=== PATIENT | male | born 1995 | race Caucasian/White ===

== ENCOUNTER 2021-02-28 11:26 | Emergency (ER) | payer OTHER, SELFPAY ==
--- NOTE | 2021-02-28 11:29 | XR_ITS ---
PROCEDURE: XR RIBS BI MIN 4V W CXR1V CLINICAL INDICATION: PAIN Bilateral rib pain COMPARISON: CR CXR CHEST(2 VIEWS-NOT PORTABLE) from 11/03/2013 CR CXR CHEST(2 VIEWS-NOT PORTABLE) from 03/30/2016 FINDINGS: Frontal view of the chest shows no acute finding. Multiple views of right and left ribs show no lytic or blastic change. No fracture or dislocation. No evidence of pneumothorax or pleural effusion. IMPRESSION: Negative bilateral ribs. Dictated by: Phuc Kelly MD 02/28/2021 11:59 Phuc Kelly MD in [place] 02/28/2021 11:59
--- NOTE | 2021-02-28 11:29 | XR_ITS ---
PROCEDURE: XR KNEE RT 3V CLINICAL INDICATION: PAIN COMPARISON: No exams were available for comparison FINDINGS: No fracture or dislocation. No lytic or blastic change. There is normal mineralization. The joint spaces are well-preserved. No significant degenerative/arthritic changes. No erosive changes evident. Other findings:There is some increased density in the suprapatellar region suggesting small knee joint effusion IMPRESSION: Possible small knee joint effusion negative. Dictated by: Phuc Kelly MD 02/28/2021 12:00 Phuc Kelly MD in [place] 02/28/2021 12:00
[2021-02-28 11:39] VITALS: BP 138/78; PULSE 86; RESP 19; TEMP 36.6; O2SAT 100; BMI 23.0
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
[2021-02-28 12:23] VITALS: BP 129/82; PULSE 85; RESP 18; TEMP 36.6
== END 2021-02-28 12:34 | disposition home or self-care (01) ==
PROVIDERS: Emergency Provider Nurse Practitioner; PCP Family Medicine
DX: S83.8X1A Sprain of other specified parts of right knee, initial encounter (principal); S20.213A Contusion of bilateral front wall of thorax, initial encounter; V00.141A Fall from scooter (nonmotorized), initial encounter; Y92.414 Local residential or business street as the place of occurrence of the external cause
CPT/HCPCS: 29505; 71111; 73562; 99202; G0463

== ENCOUNTER → 2021-03-14 13:08 | Outpatient (CLI) | payer OTHER, SELFPAY ==
--- NOTE | 2021-03-14 13:16 | MR_ITS ---
PROCEDURE INFORMATION: Exam: MR Right Lower Extremity Joint Without Contrast, Knee Exam date and time: 03/14/2021 1:16 PM Age: 26 years old Clinical indication: Pain; Knee; Right; Additional info: Strain of right knee. Hyperextended knee x1.5wks ago. Pain when bending and extending knee. Knee instability. Prior x-ray 02-28-21 TECHNIQUE: Imaging protocol: MR of the Right lower extremity joint without contrast. Exam focused on the knee. COMPARISON: CR XR KNEE RT 3V 02/28/2021 11:38 AM FINDINGS: Bones/joints: No acute fracture. No dislocation. Fluid: Small joint effusion. No significant Ozuna's cyst. Medial meniscus: No definite tear. Lateral meniscus: No definite tear. Anterior cruciate ligament: Laxity/discontinuity of fibers. Posterior cruciate ligament: Intact. Medial capsule and supporting structures: Intact. Lateral capsule and supporting structures: Intact. Extensor mechanism of knee: Intact. Muscles: Unremarkable. Soft tissues: Minimal stranding within soft tissues. IMPRESSION: Anterior cruciate ligament tear, likely subacute.
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
== END ==
PROVIDERS: PCP Family Medicine; Visit Provider Family Medicine
DX: S86.911A Strain of unspecified muscle(s) and tendon(s) at lower leg level, right leg, initial encounter (principal); M25.461 Effusion, right knee; H05.53 Retained (old) foreign body following penetrating wound of bilateral orbits
CPT/HCPCS: 70200; 73721

== ENCOUNTER 2021-04-07 09:00 | Outpatient (RCR) | payer OTHER, SELFPAY ==
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
== END 2021-04-07 09:05 | disposition home or self-care (01) ==
LOC: PT 09:00
PROVIDERS: PCP Family Medicine; Visit Provider Orthopaedic Surgery
DX: S83.31XA Tear of articular cartilage of right knee, current, initial encounter (principal)
CPT/HCPCS: 97010; 97014; 97016; 97110; 97163; G0283

== ENCOUNTER → 2021-05-09 10:06 | Outpatient (CLI) | payer OTHER, SELFPAY ==
[2021-05-09 10:21] LABS: Basophils % 0.4 % (0.1-2.0); Eosinophils # 0.2 K/mm3 (0.0-0.4); Eosinophils % 2.1 % (0.1-12.0); Hemoglobin 15.7 g/dL (14.1-18.0); Lymphocytes # 2.7 K/mm3 (0.7-4.5); Lymphocytes % 25.8 % (10-50); Mean Corpuscular HGB Conc 36.6 g/dL (31.8-35.4); Mean Corpuscular Hemoglobin 32.5 pg (27.0-31.2); Mean Corpuscular Volume 88.7 fl (80-94); Mean Platelet Volume 8.1 fl (7.4-10.4); Monocytes # 0.6 K/mm3 (0.1-1.0); Monocytes % 5.3 % (1.7-9.3); Neutrophils % 66.4 % (37.0-80.0); Platelet Count 264 K/mm3 (142-424); Red Blood Count 4.84 M/mm3 (4.60-6.20); Red Cell Distribution Width 17.6 % (11.5-17.5); White Blood Count 10.5 K/mm3 (4.8-10.8)
[2021-05-09 11:32] LABS: Chloride 106 mmol/L (98-107); Sodium 139 mmol/L (136-145)
[2021-05-09 11:33] LABS: Potassium 4.2 mmoL/L (3.5-5.1)
[2021-05-09 11:35] LABS: Alanine Aminotransferase 18 U/L (12-78); Albumin Level 4.5 g/dl (3.5-5.0); Alkaline Phosphatase 70 U/L (38-126); Anion Gap 11.2 mEq/L (5-15); Aspartate Amino Transferase 24 U/L (17-59); Bilirubin,Total 1.7 mg/dl (0.2-1.3); Blood Urea Nitrogen 11 mg/dl (9-20); Carbon Dioxide 26 mmol/L (22.0-30.0); Estimated Glomerular Filt Rate 92 ml/min (>60); GFR (African American) 111 ML/MIN (>60); Globulin 2.3 g/dL (1.3-3.2); Total Protein,Serum 6.8 g/dl (6.3-8.2)
[2021-05-09 11:36] LABS: Calcium 9.1 mg/dl (8.4-10.2); Glucose 84 mg/dl (74-100)
== END ==
PROVIDERS: Visit Provider Orthopaedic Surgery
DX: Z01.818 Encounter for other preprocedural examination (principal); Z11.52 Encounter for screening for COVID-19; S89.91XD Unspecified injury of right lower leg, subsequent encounter; S83.511D Sprain of anterior cruciate ligament of right knee, subsequent encounter
CPT/HCPCS: 36415; 80053; 85025; U0003

== ENCOUNTER 2021-05-10 07:34 | Day surgery (SDC) | payer OTHER, SELFPAY ==
[2021-05-06 08:58] VITALS: BMI 24.4
[2021-05-10] VITALS (11 sets, daily range): BP systolic 120–139; BP diastolic 58–89; PULSE 64–86; RESP 12–18; TEMP 36.1–43; O2SAT 97–99
--- NOTE | 2021-05-10 08:10 | P.PN_ITS ---
[facility] Anesthesia Checklist - Patient Identification Patient Identification: Arm Band - Structural Data Admitted From: Home Planned Operative Procedure/s: Right Knee ACL Reconstruction with Bone Tendon Autograft Consent for Planned Operative Procedure(s) Verified: Yes Verified Documents: Surgical Consent, History and Physical - NPO Status Verified Time NPO: 00:00 - Additional verifications Anesthesia Reactions: No Hx Blood Transfusions: No Blood Transfusion Reaction: No - Airway Assessment C-Spine Mobility Assessed: Yes (mp2) TMJ Mobility Assessed: Yes Dentition: Good Dentition - Neurological Assessment Level of Consciousness: Awake, Alert - Anesthesia Plan Anesthesia Risk discussed: Yes Anesthesia Plan: Verified ASA Class: I Anesthesia Type: General w/block [facility] History I have reviewed the patient's past medical history: Yes Medical History: Denies:: Cancer, Diabetes Mellitus Type 1, Diabetes Mellitus Type 2, Internal Pacemaker, MRSA, Seizures *Have you ever received a pneumonia vaccine?: No *Have you received a flu vaccine this season?: No Other Medical History: Denies: Blood Transfusion Reaction Anesthesia experience/problems:: nac Other Surgeries: Yes: No Previous Surgery. No: Pacemaker Amputation: No Fractures: No - *Social History Last grade of school completed: High school graduate Smoking Status: Current every day smoker Alcohol Intake: never Alcohol Intake Frequency:: holidays/special occasions only Substance Use Type: denies use *Occupational Status:: employed *Travel in the last 8 weeks: None Family Hx:: No significant family history
--- NOTE | 2021-05-10 12:35 | P.PN_ITS ---
[facility] Anesthesia Record Part I Intake, IV Amount: 1,800 Estimated blood loss (mL): 0 Urine output (mL): 200 Blood Pressure: 120/78 SaO2: 97 Pulse Rate: 84 Respiratory Rate: 12 Temperature: 97.8 F Patient is:: Awake, Stable Stable to PACU at:: 12:30
[2021-05-10 13:36] LABS: Microscopic,Cath URINE MICROSCOPIC (MICROSCOPIC)
[2021-05-10 13:47] LABS: Appearance,Urine/Cath CLEAR (Clear); Bilirubin,Cath Negative (Negative); Blood, Urine/Cath Negative (Negative); Color,Urine/Cath YELLOW (Yellow); Glucose,Urine/Cath (UA) Negative (Negative); Ketones,Urine/Cath Negative (Negative); Leukocyte Esterase,Cath Negative (Negative); Nitrate,Cath Negative (Negative); Protein,Urine/Cath Negative (Negative); Specific Gravity, Urine/Cath <= 1.005 (1.005-1.030); Urobilinogen,Cath 0.2 EU/dl (0.2)
[2021-05-10 14:53] LABS: WBC,Urine/Cath Occasional #/hpf (0-3)
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
--- NOTE | 2021-05-12 07:30 | P.PN_ITS ---
[facility] Anesthesia Record Part II Discharge Time: 13:00 Destination: Surgical Day Care (OP Surgery) PACU nurse assessment reviewed?: Yes Patient Condition:: Good Anesthesia Complications:: None Swallowing reflex intact?: Yes Cyanosis?: No Blood Pressure: 135/89 Pulse Rate: 85 Temperature: 97.8 F Mental Status: Alert & Oriented Pain level:: 0 Nausea and/or vomitting:: None Intake, IV Amount: 0
[2021-05-12 07:31] VITALS: BP 135/89; PULSE 85; TEMP 36.6
== END 2021-05-10 13:49 | disposition home or self-care (01) ==
PROVIDERS: PCP Family Medicine; Visit Provider Orthopaedic Surgery
PROC: (CPT 29888; principal; 2021-05-10 09:00)
DX: S83.511A Sprain of anterior cruciate ligament of right knee, initial encounter (principal); V03.0 Pedestrian injured in collision with car, pick-up truck or van in nontraffic accident; F17.210 Nicotine dependence, cigarettes, uncomplicated
CPT/HCPCS: 29888; 81001; 96374; C1713; J2405

== ENCOUNTER → 2021-07-05 13:44 | Outpatient (CLI) | payer OTHER, SELFPAY ==
--- NOTE | 2021-07-05 13:46 | XR_ITS ---
PROCEDURE: XR KNEE RT 4V CLINICAL INDICATION: sp RT knee ACL, sx 05/10/21 COMPARISON: CR XR KNEE RT 3V from 02/28/2021 FINDINGS: No fracture or dislocation. No lytic or blastic change. There is normal mineralization. The joint spaces are well-preserved. No significant degenerative/arthritic changes. No erosive changes evident. Other findings:None. IMPRESSION: No acute findings. Dictated by: Phuc Kelly MD 07/05/2021 14:28 Phuc Kelly MD in [place] 07/05/2021 14:28
== END ==
PROVIDERS: PCP Family Medicine; Visit Provider Orthopaedic Surgery
DX: Z09 Encounter for follow-up examination after completed treatment for conditions other than malignant neoplasm (principal); Z98.890 Other specified postprocedural states
CPT/HCPCS: 73564

== ENCOUNTER 2021-07-06 14:00 | Outpatient (RCR) | payer OTHER, SELFPAY ==
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
--- NOTE | 2021-06-15 15:20 | HMH.RHREAS ---
Rehab Reassessment Rehab OP Re-assessment Start: 06/15/21 13:47 Freq: Status: Active Protocol: Document 06/15/21 13:47 MELANIE (Rec: 06/15/21 15:20 MELANIE [id number]) Electronically Signed By Mookie Diana, PT 06/15/21 13:47 Rehab Re-assessment Subjective Subjective Pt reports 0-4/10 right knee pain on VAS w/activity, and feels 65% better overall since I eval Objective Objective Notes AROM: RIGHT KNEE FLX 4-121 PROM: RIGHT KNEE FLX 0-130 MMT: RIGHT KNEE EXT 4/5, FLX 4 /5, RIGHT HIP FLX 4--4/5, EXT 4-4+/5, ABD,ADD 4/5 GAIT: 2-5 DEGREES EXT LAG WITH STANCE PHASE ON RIGHT TTP:RIGHT KNEE SX. INCISIONS/ SCAR TISSUE 1-10/28, LATERAL JT LINE 2/4 Assessment Progress Assessment Progressing as Expected Assessment Notes IMPROVED STRENGTH, ROM, TTP, AND GAIT Patient goals met STG'S 03/02 Goals Not Met STG'S 11/30, LTG'S 06/02 Plan Plan Pt to continue w/skilled P.T. to make further improvements in AROM, strength, TTP, and gait to allow for optimal function Frequency of Therapy 2-3x/wk Duration of therapy 8-10 wks Time and Billing Re-Eval Time 15 Re-Eval Billing Units 1 PHYSICIAN CERTIFICATION: I certify the specified therapy services for Herson Medina are required, authorized, and reviewed every 30 days.
== END 2021-07-06 14:05 | disposition home or self-care (01) ==
LOC: PT 14:00
PROVIDERS: PCP Family Medicine; Visit Provider Orthopaedic Surgery
DX: M25.561 Pain in right knee (principal); S83.31XA Tear of articular cartilage of right knee, current, initial encounter
CPT/HCPCS: 97010; 97014; 97016; 97110; 97140; 97163; 97164; G0283

== ENCOUNTER 2023-03-07 18:29 | Emergency (ER) | payer SELFPAY ==
[2023-03-07 18:30] VITALS: BP 127/69; PULSE 89; RESP 16; TEMP 36.5; O2SAT 98; BMI 25.4
--- NOTE | 2023-03-07 20:26 | XR_ITS ---
PROCEDURE INFORMATION: Exam: XR Right Knee Exam date and time: 03/07/2023 8:21 PM Age: 28 years old Clinical indication: Pain; Knee; Right TECHNIQUE: Imaging protocol: Radiologic exam of the right knee. Views: 3 views. COMPARISON: CR XR KNEE RT 4V 09/02/2021 14:06 FINDINGS: Bones/joints: No acute fracture or dislocation. Soft tissues: Normal. IMPRESSION: No acute fracture or dislocation.
--- NOTE | 2023-03-07 20:26 | XR_ITS ---
PROCEDURE INFORMATION: Exam: XR Left Knee Exam date and time: 03/07/2023 8:22 PM Age: 28 years old Clinical indication: Pain; Knee; Left TECHNIQUE: Imaging protocol: Radiologic exam of the left knee. Views: 3 views. COMPARISON: No relevant prior studies available. FINDINGS: Bones/joints: No acute fracture or dislocation. Soft tissues: Normal. IMPRESSION: No acute fracture or dislocation.
--- NOTE | 2023-03-07 20:36 | HMH.EDGENADL ---
Discharge Plan Disposition Patient Disposition: Home, Self-Care Prescriptions Prescriptions: New sulfamethoxazole-trimethoprim [Bactrim DS] 800-160 mg Tablet 1 tab PO Q12H Qty: 20 0RF cephalexin [cephalexin] 500 mg capsule 500 mg PO TID Qty: 30 0RF Referrals Follow up/Referrals: Isaac Saravia MD [Primary Care Provider] - See instructions Clinical Impressions Clinical Impression: Cellulitis Instructions Patient Instructions: Cellulitis Discharge ED Provider: Rad (ED)[facility] General Adult HPI General Chief complaint: PAIN Stated complaint: sore on each leg,painful Time Seen by Provider: 03/07/23 20:39 Mode of Arrival: Ambulatory Source of Information: Patient and Medical Record Limitations: No Limitations Description of Symptoms (Recalled from ER Triage Doc. by RN): PT REPORTS INCREASED BILATERAL KNEE PAIN THAT RADIATES DOWN BILATERAL LEGS WITH REDNESS AND SWELLING. 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 History of Present Illness HPI narrative: pt has reddness and pain to upper tibial area - no trauma but has been laying deacon Onset (ago): day(s) Location: lower extremity Severity: moderate Consistency: intermittent Associated symptoms: denies other symptoms Related Data Previous Rx's Medication Instructions Recorded cephalexin 500 mg capsule 500 mg PO TID #30 caps 03/07/23 sulfamethoxazole 800 1 tab PO Q12H #20 tabs 03/07/23 mg-trimethoprim 160 mg tablet (Bactrim DS) Allergies Allergy/AdvReac Type Severity Reaction Status Date / Time HONEY BEE Allergy Mild Uncoded 07/05/21 14:31 [facility] Disclaimer: The information contained in this section may have been updated after the patient was seen, as this information can be updated by other users. Surgical History (Updated 03/07/23 @ 18:48 by Denisse Waggoner RN) S/P ACL repair Family History (Updated 03/07/23 @ 18:48 by Denisse Waggoner RN) Other No significant family history Social History (Updated 03/07/23 @ 18:48 by Denisse Waggoner RN) Smoking Status: Never smoker alcohol intake: current substance use type: denies use current occupational status: employed Travel in the last 8 weeks: None caffeine: No ROS Obtained: Yes All systems reviewed & no additional complaints except as documented Physical Exam General General appearance: alert Head Head exam: normocephalic Eye Eye exam: Present PERRL and EOMI ENT ENT exam: Present mucous membranes moist Neck Neck exam: Present trachea midline Respiratory Respiratory exam: Absent respiratory distress Cardiovascular Cardiovascular exam: Present regular rate Extremities Exam Extremities exam: Present other (has bilat upper leg reddness and tenderness consistent with cellulitis - no abscess - nl rom of knees and no effusion) Neurological Exam Neurological exam: Present alert, oriented X3 and CN II-XII intact; Absent motor sensory deficit Psychiatric Psychiatric exam: Present normal affect Skin Skin exam: Present rash (bilat cellulitis upper lower ext ) Medical Decision Making Medical Records Medical records reviewed: Yes I reviewed the patient's medical records. [place] Inquiry Pt receiving controlled substance: No Vital Signs: 03/07/23 18:30 Temperature 97.7 F Temperature Source Oral Pulse Rate [Radial] 89 Respiratory Rate 16 Blood Pressure [Left Arm] 127/69 Blood Pressure Mean [Left Arm] 88 Blood Pressure Source [Left Arm] Automatic Cuff Blood Pressure Position [Left Arm] Sitting 02 Sat by Pulse Oximetry 98 Oxygen Delivery Method Room Air Lab Data Lab results reviewed: Yes I reviewed the patient's lab results. Orders (Tests/Meds): ORDERS Category Date Time Status Knee XR right 3 views [XR knee RT 3V] Stat Exams 03/07/23 20:26 Taken XR knee LT 3V Stat Exams 03/07/23 20:26 Taken Radiology Data #1: Image(s): Knee Image Reviewed: Yes I reviewed the patient's radiology image Preliminar
[2023-03-07 20:52] VITALS: BP 121/67; PULSE 81; RESP 16; TEMP 36.5; O2SAT 98
== END 2023-03-07 20:56 | disposition home or self-care (01) ==
PROVIDERS: Emergency Provider Emergency Medicine; PCP Family Medicine
DX: L03.115 Cellulitis of right lower limb (principal); L03.116 Cellulitis of left lower limb; M25.561 Pain in right knee; M25.562 Pain in left knee
CPT/HCPCS: 73562; 99283; 99284

== ENCOUNTER 2025-02-25 13:58 | Outpatient (CLI) | payer OTHER, SELFPAY ==
[2025-02-25 14:51] LABS: Basophils % 0.2 % (0.1-2.0); Eosinophils # 0.2 Kmm3 (0.0-0.4); Eosinophils % 1.2 % (0.1-12.0); Hematocrit 40.2 % (42.0-52.0); Hemoglobin 14.3 g/dL (14.1-18.0); Immature Granulocytes # 0.06 10^3uL; Immature Granulocytes % 0.5 %; Lymphocytes # 2.5 K/mm3 (0.7-4.5); Lymphocytes % 19.5 % (10-50); Mean Corpuscular HGB Conc 35.6 g/dL (31.8-35.4); Mean Corpuscular Hemoglobin 32.6 pg (27.0-31.2); Mean Corpuscular Volume 91.6 fl (80-94); Mean Platelet Volume 11.4 fl (7.4-10.4); Monocytes % 7.7 % (1.7-9.3); Neutrophils % 70.9 % (37.0-80.0); Nucleated Red Blood Cells # 0 10^3/uL; Nucleated Red Blood Cells % 0 %; Platelet Count 258 K/mm3 (142-424); Red Blood Count 4.39 M/mm3 (4.60-6.20); Red Cell Distribution Width 17.6 % (11.5-17.5); Red Cell Distribution Width-SD 56.5 fL; White Blood Count 12.7 K/mm3 (4.8-10.8)
[2025-02-25 15:24] LABS: Alanine Aminotransferase 33 U/L (12-78); Albumin Level 4.2 g/dl (3.5-5.0); Alkaline Phosphatase 66 U/L (38-126); Anion Gap 11.2 mEq/L (5-15); Aspartate Amino Transferase 31 U/L (17-59); Bilirubin,Total 1.6 mg/dl (0.2-1.3); Blood Urea Nitrogen 11 mg/dl (9-20); Calcium 8.7 mg/dl (8.4-10.2); Carbon Dioxide 27 mmol/L (22.0-30.0); Chloride 108 mmol/L (98-107); Estimated Glomerular Filt Rate 134 ml/min (>60); GFR (African American) 162 ML/MIN (>60); Globulin 2.1 g/dL (1.3-3.2); Glucose 73 mg/dl (74-100); Potassium 4.2 mmoL/L (3.5-5.1); Sodium 142 mmol/L (136-145); Total Protein,Serum 6.3 g/dl (6.3-8.2)
== END 2025-02-25 23:59 | disposition home or self-care (01) ==
LOC: LAB 13:58
PROVIDERS: PCP Family Medicine; Visit Provider Surgery
DX: R10.11 Right upper quadrant pain (principal)
CPT/HCPCS: 36415; 80053; 85025